=== PATIENT | male | born 1990 | race Two or more races ===

== ENCOUNTER 2024-07-30 09:38 | Emergency (ER) | payer MEDICAID ==
[~2024-07-30] VITALS: Ht 170.2 cm; Wt 100.0 kg
[2024-07-30 10:11] LABS: COVID AG,FIA SOURCE NASAL SWAB
[2024-07-30 10:44] LABS: SARS-COV2 (COVID) ANTIGEN,FIA Negative (Negative)
[2024-07-30 10:45] LABS: INFLUENZA TYPE A NEGATIVE FOR TYPE A (NEGATIVE); INFLUENZA TYPE B NEGATIVE FOR TYPE B (NEGATIVE)
[2024-07-30] MEDS ORDERED: BENZ-227 PO (11:02)
[2024-07-30] MEDS: BENZONATATE 100 MG CAPSULE PO ONE (11:13)
[2024-07-30 11:14] VITALS: BP 124/60; PULSE 65; RESP 16; TEMP 98; O2SAT 100
== END 2024-07-30 11:19 | disposition home or self-care (01) ==
LOC: EMS 09:43
DX: J40 Bronchitis, not specified as acute or chronic (principal); Z20.822 Contact with and (suspected) exposure to COVID-19
CPT/HCPCS: 87804; 99283